=== PATIENT | male | born 1975 | race Caucasian/White ===

== ENCOUNTER 2017-09-04 01:01 | Emergency (ER) | payer SELFPAY ==
--- NOTE | 2017-09-04 01:50 | EDM.PDOC ---
ED HPI GENERAL MEDICAL PROBLEM - General Chief Complaint: General Stated Complaint: CHEST PAIN Time Seen by Provider: 09/04/17 01:41 Source of Information: Reports: Patient, RN Notes Reviewed History Limitations: Reports: No Limitations - History of Present Illness INITIAL COMMENTS - FREE TEXT/NARRATIVE: 42-year-old gentleman presents emergency department today with complaint of chest pain, the chest pain occurred one hour prior lasted for about 15 minutes describes it as sharp stabbing center of the chest there was no nausea vomiting no diaphoresis no shortness of breath no history of coronary artery disease does have both maternal and paternal grandparents with myocardial infarction he does use tobacco products Denies Pain Score (Numeric/FACES): 0 - Related Data Allergies Allergy/AdvReac Type Severity Reaction Status Date / Time aspirin Allergy Stomach Verified 09/04/17 01:47 Upset NSAIDS (Non-Steroidal Allergy Anaphylactic Verified 09/04/17 01:25 Anti-Inflamma Shock venom-honey bee Allergy Swelling Verified 09/04/17 01:25 [bee venom (honey bee)] clams Allergy Swelling Uncoded 09/04/17 01:25 Home Meds: Home Meds Acetaminophen with Codeine [Tylenol with Codeine #3 Tablet] 1 each PO Q6H PRN [History] Cyclobenzaprine [Flexeril] 5 mg PO DAILY PRN 12/30/16 [History] Past Medical History Other HEENT History: removed lymph node Cardiovascular History: Reports: Other (See Below) Other Cardiovascular History: fluid on heart and elevated liver enzymes Gastrointestinal History: Reports: Other (See Below) Other Gastrointestinal History: Lots of 'heart burn' Musculoskeletal History: Reports: Arthritis Psychiatric History: Reports: Anxiety, PTSD Other Oncologic History: malignant melanoma Dermatologic History: Reports: Other (See Below) Other Dermatologic History: discoid lupes - Infectious Disease History Infectious Disease History: Reports: Chicken Pox Social & Family History - Tobacco Use Smoking Status *Q: Current Every Day Smoker Years of Tobacco use: 22 Packs/Tins Daily: 1.5 Used Tobacco, but Quit: No Month Tobacco Last Used: nov Second Hand Smoke Exposure: Yes - Caffeine Use Caffeine Use: Reports: Coffee, Energy Drinks, Soda, Tea - Alcohol Use Days Per Week of Alcohol Use: 0 Number of Drinks Per Day: 1 Total Drinks Per Week: 0 - Recreational Drug Use Recreational Drug Use: No Drug Use in Last 12 Months: Yes Recreational Drug Type: Reports: Marijuana/Hashish Recreational Drug Use Frequency: Socially ED ROS GENERAL - Review of Systems Review Of Systems: See Below Constitutional: Reports: No Symptoms HEENT: Reports: No Symptoms Respiratory: Reports: No Symptoms Cardiovascular: Reports: Chest Pain GI/Abdominal: Reports: No Symptoms : Reports: No Symptoms Musculoskeletal: Reports: No Symptoms Skin: Reports: No Symptoms Neurological: Reports: No Symptoms ED EXAM, GENERAL - Physical Exam Exam: See Below Free Text/Narrative:: General: Male, not in any distress dress, alert and oriented x3 HEENT: head is atraumatic normocephalic, eyes pupils equal round reactive to light, sclera clear no conjunctivitis appreciated. Ears tympanic membranes clear and trevino landmarks and light reflex are present bilaterally canals are clear. Nose no septal deviation, nares are clear, no blood present. Mouth mucosa is moist and pink no erythema or exudate noted in soft palate, tongue is midline uvula is midline, dentition is poor. Neck: Supple no thyromegaly no tracheal deviation. Nodes: Cervical nodes subclavicular nodes nontender no palpable lymphadenopathy noted. Lungs: clear to auscultation bilaterally with symmetrical respirations, no adventitious noise appreciated. CV: Regular rate and rhythm S1 and S2 appreciated no murmurs rubs or gallops noted. Abdomen: Soft, nontender, no palpable masses or organomegaly appreciated, no distention no guarding bowel sounds are present, . Neuro: Cranial nerves II through XII grossly intact Skin: Warm and dry, intact Extremities: No lower extremity edema appreciated, Course - Vital Signs Last Recorded V/S: Last Vital Signs Temp 98.4 F 09/04/17 03:22 Pulse 76 09/04/17 03:22 Resp 16 09/04/17 03:22 BP 143/95 H 09/04/17 03:22 Pulse Ox 96 09/04/17 03:22 - Orders/Labs/Meds Orders: Active Orders 24 hr Category Date Time Status Cardiac Monitoring [RC] .As Directed Care 09/04/17 01:46 Active EKG Documentation Completion [RC] ASDIRECTED Care 09/04/17 01:47 Active Chest 2V [CR] Stat Exams 09/04/17 01:47 Taken Aspirin Contraindications AMI [AST] Per Unit Routine Oth 09/04/17 01:46 Ordered EKG 12 Lead [EK] Stat Ther 09/04/17 01:47 Ordered Labs: Laboratory Tests 09/04/17 09/04/17 Range/Units 01:57 01:57 WBC 8.7 (4.5-11.0) K/uL RBC 5.64 (4.30-5.90) M/uL Hgb 15.8 H (12.0-15.0) g/dL Hct 46.6 (40.0-54.0) % MCV 83 (80-98) fL MCH 28 (27-31) pg MCHC 34 (32-36) % Plt Count 212 (150-400) K/uL Neut % (Auto) 46 (36-66) % Lymph % (Auto) 41 (24-44) % [place] % (Auto) 9 H (2-6) % Eos % (Auto) 4 (2-4) % Baso % (Auto) 1 (0-1) % Sodium 139 L (140-148) mmol/L Potassium 3.3 L (3.6-5.2) mmol/L Chloride 103 (100-108) mmol/L Carbon Dioxide 30 (21-32) mmol/L Anion Gap 9.3 (5.0-14.0) mmol/L BUN 14 (7-18) mg/dL Creatinine 1.2 (0.8-1.3) mg/dL Est Cr Clr Drug Dosing 92.48 mL/min Estimated GFR (MDRD) > 60 (>60) Glucose 95 (74-106) mg/dL Calcium 8.8 (8.5-10.1) mg/dL Total Bilirubin 0.3 (0.2-1.0) mg/dL AST 35 (15-37) U/L ALT 76 (12-78) U/L Alkaline Phosphatase 93 (46-116) U/L CK-MB (CK-2) 1.6 (0-3.6) mg/mL Troponin I < 0.017 (0.000-0.056) ng/mL Total Protein 6.9 (6.4-8.2) g/dL Albumin 3.6 (3.4-5.0) g/dL Globulin 3.3 (2.3-3.5) g/dL Albumin/Globulin Ratio 1.1 L (1.2-2.2) Departure - Departure Time of Disposition: 03:27 Disposition: Home, Self-Care 01 Condition: Good Clinical Impression: Atypical chest pain - Discharge Information Referrals: PCP,None [Primary Care Provider] - Forms: ED Department Discharge Additional Instructions: Please followup with your primary care provider in 3-5 days if not better, please call return to the emergency department with worsening of symptoms. - My Orders Last 24 Hours: My Active Orders 09/04/17 01:46 Cardiac Monitoring [RC] .As Directed Aspirin Contraindications AMI [AST] Per Unit Routine 09/04/17 01:47 EKG Documentation Completion [RC] ASDIRECTED Chest 2V [CR] Stat EKG 12 Lead [EK] Stat - Assessment/Plan Last 24 Hours: My Active Orders 09/04/17 01:46 Cardiac Monitoring [RC] .As Directed Aspirin Contraindications AMI [AST] Per Unit Routine 09/04/17 01:47 EKG Documentation Completion [RC] ASDIRECTED Chest 2V [CR] Stat EKG 12 Lead [EK] Stat Plan: Assessment Acuity = acute Site and laterality = atypical chest pain Etiology = unclear etiology Manifestations = none Location of injury = Home Lab values = CBC, CMP, troponin all negative, chest x-ray I did review films myself I cannot appreciate any acute process, the official read from radiology is pending, heart score is 1, EKG demonstrates no elevations or depressions incomplete) Rx block this is similar to prior EKGs Plan Did review lab work EKG and chest x-ray results with him he remained chest pain- free while in the ED, have him follow-up with his primary care in 3-5 days if not better Patient was in agreement with the plan all questions were answered, they were instructed to return to the emergency department or call for worsening symptoms. This note was dictated using [employer] voice recognition software please call with any questions.
[2017-09-04 03:23] VITALS: BP 143/95
--- NOTE | 2017-09-06 08:40 | CR ---
Chest 2V HISTORY: Chest Pain COMPARISON: None FINDINGS: Lungs appear clear and normally aerated. Cardiomediastinal silhouette is within normal limits. No vas cular redistribution or pleural fluid can be seen. Bony structures and soft tissues are unremarkable. IMPRESSION: No acute chest abnormality identified.
== END 2017-09-04 03:48 | disposition home or self-care (01) ==
LOC: JP.ED 01:01
DX: R07.89 Other chest pain (principal); F41.9 Anxiety disorder, unspecified; F17.210 Nicotine dependence, cigarettes, uncomplicated; Z88.6 Allergy status to analgesic agent; Z88.8 Allergy status to other drugs, medicaments and biological substances; Z91.030 Bee allergy status; Z79.899 Other long term (current) drug therapy
CPT/HCPCS: 36415; 71020; 71020-26; 80053; 82553; 84484; 85025; 93005; 93010; 99284; 99285-25